=== PATIENT | male | born 1975 | race Caucasian/White ===

== ENCOUNTER → 2024-05-02 | Day surgery (SDC) | payer OTHER ==
[2024-04-29 13:09] LABS: BASOPHILS % 0.2 % (0.0-1.0); EOSINOPHILS # (AUTO) 0.1 (0.0-0.4); EOSINOPHILS % 1.3 % (0.0-6.0); HEMATOCRIT 48.8 % (38.2-49.6); HEMOGLOBIN 15.8 g/dL (14.0-18.0); LYMPHOCYTES # (AUTO) 2.7 (1.0-3.2); LYMPHOCYTES % 30.2 % (18.0-39.1); MEAN CORPUSCULAR HEMOGLOBIN 30.7 pg (28-32); MEAN CORPUSCULAR HGB CONC 32.4 g/dL (31-35); MEAN CORPUSCULAR VOLUME 94.8 fL (81-99); MONOCYTES # (AUTO) 0.6 (0.2-0.8); MONOCYTES % 6.6 % (4.4-11.3); NEUTROPHILS # (AUTO) 5.5 (2.1-6.9); NEUTROPHILS % 61.4 % (38.7-80.0); PLATELET COUNT 237 x10e3/uL (140-360); RED BLOOD COUNT 5.15 x10e6/uL (4.3-5.7); RED CELL DISTRIBUTION WIDTH 13.1 % (11.7-14.4); WHITE BLOOD COUNT 8.93 x10e3/uL (4.8-10.8)
[2024-04-29 13:33] LABS: ALBUMIN 3.9 g/dL (3.5-5.0); ALBUMIN/GLOBULIN RATIO 1.4 (0.8-2.0); BILIRUBIN,TOTAL 0.8 mg/dL (0.2-1.2); CALCIUM 9.2 mg/dL (8.4-10.2); CREATININE, SERUM 1.04 mg/dL (0.72-1.25); TOTAL PROTEIN 6.7 g/dL (6.5-8.1)
[~2024-05-02] MED LIST: BUPIVACAINE HCL 0.5% INJ 30 ML VIAL INJ ONE; BUPROPION HCL150 M2 PO; DEXAMETHASONE SOD PHOS 10 MG/1 ML VIAL ONE; FENTANYL CITRATE/PF 100MCG/2 ML INJ ONE; HYDROCODONE/APAP 7.5MG-325MG 1 EA TAB ONE; LIDOCAINE 1% W/EPINEPHRINE 20 ML VIAL ONE; LISINOPRIL20 MG PO; MIDAZOLAM HCL 2 MG/2 ML VIAL ONE; MULTI-VITAMIN1 EACH PO; ROPIVACAINE 0.5% 5 MG/ML 30 ML SDV ONE; TIZANIDINE HCL4 MG PO
[2024-05-02] MEDS: LACTATED RINGER'S 1,000 ML ONE (06:50)
[2024-05-02] MEDS: CEFAZOLIN SODIUM 2 GM ONE (06:51)
[2024-05-02] MEDS: ONDANSETRON HCL INJ 2MG/ML 2ML 2 MG/ML VIAL ONE (09:40)
[2024-05-02 09:55] VITALS: BP 140/75; PULSE 76; RESP 19; O2SAT 99
== END | disposition home or self-care (01) ==
LOC: OR 06:18
PROVIDERS: ATTEND Orthopaedic Surgery
DX: S83.232A Complex tear of medial meniscus, current injury, left knee, initial encounter (principal); S83.282A Other tear of lateral meniscus, current injury, left knee, initial encounter; M94.262 Chondromalacia, left knee; M65.862 Other synovitis and tenosynovitis, left lower leg; M23.42 Loose body in knee, left knee; W10.9XXA Fall (on) (from) unspecified stairs and steps, initial encounter; I10 Essential (primary) hypertension; E66.01 Morbid (severe) obesity due to excess calories; F41.9 Anxiety disorder, unspecified; R94.31 Abnormal electrocardiogram [ECG] [EKG]; Z01.812 Encounter for preprocedural laboratory examination; Z01.810 Encounter for preprocedural cardiovascular examination; Z79.899 Other long term (current) drug therapy
CPT/HCPCS: 29882; 29999; 36415; 80053; 85025; 93005; C1713 ×3; J0690; J1100; J2250; J2405; J2795; J3010; J7121

== ENCOUNTER → 2024-09-12 | Day surgery (SDC) | payer OTHER ==
[2024-09-02 11:25] LABS: BASOPHILS % 0.1 % (0.0-1.0); EOSINOPHILS # (AUTO) 0.1 (0.0-0.4); EOSINOPHILS % 1.2 % (0.0-6.0); HEMATOCRIT 45.1 % (38.2-49.6); LYMPHOCYTES # (AUTO) 2.2 (1.0-3.2); LYMPHOCYTES % 30.2 % (18.0-39.1); MEAN CORPUSCULAR HEMOGLOBIN 30.2 pg (28-32); MEAN CORPUSCULAR HGB CONC 33.3 g/dL (31-35); MEAN CORPUSCULAR VOLUME 90.7 fL (81-99); MONOCYTES # (AUTO) 0.6 (0.2-0.8); MONOCYTES % 7.5 % (4.4-11.3); NEUTROPHILS # (AUTO) 4.5 (2.1-6.9); NEUTROPHILS % 60.6 % (38.7-80.0); PLATELET COUNT 259 x10e3/uL (140-360); RED BLOOD COUNT 4.97 x10e6/uL (4.3-5.7); RED CELL DISTRIBUTION WIDTH 13.1 % (11.7-14.4); WHITE BLOOD COUNT 7.36 x10e3/uL (4.8-10.8)
[2024-09-02 11:57] LABS: ALBUMIN 3.8 g/dL (3.5-5.0); ALBUMIN/GLOBULIN RATIO 1.4 (0.8-2.0); ANION GAP 11.9 mmol/L (8-16); BILIRUBIN,TOTAL 0.6 mg/dL (0.2-1.2); CREATININE, SERUM 0.94 mg/dL (0.72-1.25); POTASSIUM 3.9 mmol/L (3.5-5.1); TOTAL PROTEIN 6.5 g/dL (6.5-8.1)
[~2024-09-12] MED LIST changes: +ACETAMINOPHEN 1000 MG/100 ML 100 ML IV ONE; -BUPIVACAINE HCL 0.5% INJ 30 ML VIAL INJ ONE; -DEXAMETHASONE SOD PHOS 10 MG/1 ML VIAL ONE; +DEXAMETHASONE SOD PHOS INJ 4 MG/ML SDV ONE; +DEXMEDETOMIDINE HCL 2 ML ONE; -HYDROCODONE/APAP 7.5MG-325MG 1 EA TAB ONE; -LIDOCAINE 1% W/EPINEPHRINE 20 ML VIAL ONE; +LIDOCAINE HCL 2% LOCAL INJ 5 ML SDV VIAL INJ ONE; +ONDANSETRON HCL INJ 2MG/ML 2ML 2 MG/ML VIAL ONE; +PROPOFOL IV EMULSION 10 MG/ML 20 ML VIAL ONE; -ROPIVACAINE 0.5% 5 MG/ML 30 ML SDV ONE; +SEVOFLURANE INHAL SOLN 250 ML PEN BTL ONE; +SODIUM CHLORIDE 0.9% 100 ML ONE
[2024-09-12] MEDS: CEFAZOLIN SODIUM 2 GM ONE (06:30)
[2024-09-12] MEDS: LACTATED RINGER'S 1,000 ML ONE (06:31)
[2024-09-12 07:58] VITALS: TEMP 97.6
[2024-09-12 08:45] VITALS: BP 146/88; PULSE 76; RESP 16; O2SAT 96
== END | disposition home or self-care (01) ==
LOC: OR 05:39
PROVIDERS: ATTEND Orthopaedic Surgery
DX: S83.232A Complex tear of medial meniscus, current injury, left knee, initial encounter (principal); S83.282A Other tear of lateral meniscus, current injury, left knee, initial encounter; M22.42 Chondromalacia patellae, left knee; M65.162 Other infective (teno)synovitis, left knee; I10 Essential (primary) hypertension; E66.01 Morbid (severe) obesity due to excess calories; F41.9 Anxiety disorder, unspecified; X58.XXXA Exposure to other specified factors, initial encounter; Z01.810 Encounter for preprocedural cardiovascular examination; Z01.812 Encounter for preprocedural laboratory examination; Z79.899 Other long term (current) drug therapy
CPT/HCPCS: 29880; 36415; 80053; 85025; 93005; J0131; J1100; J2003; J2250; J2405; J2704; J3010; J7050; J7121